=== PATIENT | male | born 1940 | race Caucasian/White ===

== ENCOUNTER 2016-05-09 13:04 | Inpatient (IN) | payer MEDICARE, OTHER ==
--- NOTE | 2016-05-10 15:24 | NUR ---
1030 PNEUMATIC COMPRESSION DEVICE TO LLE PLACED PER MD ORDER
--- NOTE | 2016-05-13 15:44 | NUR ---
1530 pt. back and buttocks red blanchable, sennsi cream to buttocks, pt. refuses to lie in bed, pt. talked to about pressure sores and says he understands
[2016-05-15] MEDS ORDERED: LOPRESSOR50 MG PO (15:09)
[2016-05-15] MEDS ORDERED: MAXZIDE 37.5 M1 EACH PO (15:09)
[2016-05-15] MEDS ORDERED: WELLBUTRIN SR150 MG PO (15:10)
[2016-05-15] MEDS ORDERED: ZOCOR20 MG PO (15:10)
[2016-05-15] MEDS ORDERED: DAILY VALUE1 EACH PO (15:11)
[2016-05-15] MEDS ORDERED: CIPRO500 MG PO (15:11)
== END 2016-05-15 17:44 | disposition home or self-care (01) | DRG 603 ==
LOC: ER 13:04 → MED 17:09
PROVIDERS: ADMIT Internal Medicine
PROC: 3E0234Z Introduction of Serum, Toxoid and Vaccine into Muscle, Percutaneous Approach (ICD-10-PCS; principal; 2016-05-15)
DX: L03.115 Cellulitis of right lower limb (principal); B96.5 Pseudomonas (aeruginosa) (mallei) (pseudomallei) as the cause of diseases classified elsewhere; I10 Essential (primary) hypertension; E78.5 Hyperlipidemia, unspecified; F10.10 Alcohol abuse, uncomplicated; Z87.891 Personal history of nicotine dependence; E66.9 Obesity, unspecified; Z23 Encounter for immunization; Z79.899 Other long term (current) drug therapy; Z68.36 Body mass index [BMI] 36.0-36.9, adult
CPT/HCPCS: 36415; 80307; 90653; 97161-GP; G0008; G0480; J0696; J0713; J1580; J1650; J3370; J7050; Q9967

== ENCOUNTER 2016-05-09 13:04 | Emergency (ER) | payer SELFPAY | END 2016-05-09 17:08 | disposition critical access hospital (66) | LOC: ER 13:04 | DX: L03.115 Cellulitis of right lower limb (principal); I10 Essential (primary) hypertension; M51.36 Other intervertebral disc degeneration, lumbar region | CPT/HCPCS: 36415; 96365; J3370; Q9967 ==

== ENCOUNTER 2016-05-28 12:06 | Emergency (ER) | payer SELFPAY ==
[~2016-05-28 12:06] MED LIST: CIPRO500 MG PO; DAILY VALUE1 EACH PO; LOPRESSOR50 MG PO; MAXZIDE 37.5 M1 EACH PO; WELLBUTRIN SR150 MG PO; ZOCOR20 MG PO
== END 2016-05-28 15:41 | disposition critical access hospital (66) ==
LOC: ER 12:06
DX: L03.115 Cellulitis of right lower limb (principal); I10 Essential (primary) hypertension; E78.5 Hyperlipidemia, unspecified; Z79.899 Other long term (current) drug therapy
CPT/HCPCS: 36415; 96365

== ENCOUNTER 2016-05-28 12:06 | Inpatient (IN) | payer MEDICARE ==
[2016-05-31] MEDS ORDERED: LOPRESSOR50 MG PO (13:42)
[2016-05-31] MEDS ORDERED: WELLBUTRIN SR150 MG PO (13:42)
[2016-05-31] MEDS ORDERED: ZOCOR20 MG PO (13:42)
[2016-05-31] MEDS ORDERED: DAILY VITE1 EACH PO (13:43)
[2016-05-31] MEDS ORDERED: LEVAQUIN750 MG PO (13:45)
[2016-05-31] MEDS ORDERED: LASIX40 MG PO (13:46)
[2016-05-31] MEDS ORDERED: K-DUR20 MEQ PO (13:46)
== END 2016-05-31 17:14 | disposition home or self-care (01) | DRG 603 ==
LOC: ER 12:06 → MED 15:41
PROVIDERS: ADMIT Internal Medicine
DX: L03.115 Cellulitis of right lower limb (principal); R60.0 Localized edema; I87.8 Other specified disorders of veins; E87.6 Hypokalemia; E83.42 Hypomagnesemia; I10 Essential (primary) hypertension; E78.5 Hyperlipidemia, unspecified; Z79.899 Other long term (current) drug therapy; Z87.891 Personal history of nicotine dependence
CPT/HCPCS: 36415; J1650; J1940